=== PATIENT | female | born 1955 | race Caucasian/White ===

== ENCOUNTER 2016-10-29 09:57 | Day surgery (SDC) | payer OTHER ==
[~2016-10-29 09:57] MED LIST: LACTATED RINGERS 1,000 ML IV SCH
[2016-10-29] MEDS ORDERED: FENTANYL 250 MCG/5 ML AMP ONE (10:41)
[2016-10-29] MEDS ORDERED: MIDAZOLAM HCL 5 MG/5 ML VIAL ONE (10:41)
[2016-10-29] MEDS ORDERED: FENTANYL 250 MCG/5 ML AMP IV PRN (11:18)
[2016-10-29] MEDS ORDERED: MIDAZOLAM HCL 5 MG/5 ML VIAL IV PRN (11:18)
== END 2016-10-29 15:17 | disposition home or self-care (01) ==
LOC: SDC 09:57
PROVIDERS: ATTEND Internal Medicine Gastroenterology
DX: K64.8 Other hemorrhoids (principal); Z80.0 Family history of malignant neoplasm of digestive organs; E03.9 Hypothyroidism, unspecified
CPT/HCPCS: 45378; J3010; J2250